=== PATIENT | male | born 1980 | race Caucasian/White ===

== ENCOUNTER 2020-12-06 13:42 | Outpatient (CLI) | payer OTHER ==
[~2020-12-06 13:42] MED LIST: ALBU18HF INH; AMOX1TAB64 PO; CETI10TA76 PO; FLUT9.9S INH; OMEP20TA62 PO
== END 2020-12-06 23:59 | disposition home or self-care (01) ==
LOC: RAD 13:42
PROVIDERS: ATTEND Chiropractor
DX: R06.02 Shortness of breath (principal)
CPT/HCPCS: 73562